=== PATIENT | male | born 1995 | race Caucasian/White ===

== ENCOUNTER 2017-02-03 15:59 | Emergency (ER) | payer OTHER ==
--- NOTE | 2017-02-03 16:25 | EDM.PDOC ---
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 Past medical history: As per history of present illness and as reviewed below otherwise noncontributory. Surgical history: As per history of present illness and as reviewed below otherwise noncontributory. Social history: No reported history of drug or alcohol abuse. Family history: As per history of present illness and as reviewed below otherwise noncontributory. Physical exam: HEENT: Atraumatic, normocephalic, pupils reactive, negative for conjunctival pallor or scleral icterus, mucous membranes moist, throat clear, neck supple, nontender, trachea midline. Lungs: Clear to auscultation, breath sounds equal bilaterally, chest nontender. Heart: S1S2, regular, negative for clicks, rubs, or JVD. Abdomen: Soft, nondistended, nontender. Negative for masses or hepatosplenomegaly. Negative for costovertebral tenderness. Pelvis: Stable nontender. Genitourinary: Deferred. Rectal: Deferred. Extremities: Atraumatic, negative for cords or calf pain. Neurovascular unremarkable. Neuro: Awake, alert, oriented. Cranial nerves II through XII unremarkable. Cerebellum unremarkable. Motor and sensory unremarkable throughout. Exam nonfocal. Diagnostics: [] CT without Cervical spine without Plain films thoracic 3 view Therapeutics: rest ice ibuprofen Impression: [] Concussion Paraspinous muscle spasm is, cervical Definitive disposition and diagnosis as appropriate pending reevaluation and review of above. head and back Pain Score (Numeric/FACES): 5 - Related Data Allergies Allergy/AdvReac Type Severity Reaction Status Date / Time No Known Allergies Allergy Verified 02/03/17 16:13 Home Meds: Home Meds . [No Known Home Meds] 07/06/14 [History] Past Medical History - Past Health History Medical/Surgical History: Denies Medical/Surgical History Social & Family History - Family History Family Medical History: Noncontributory - Tobacco Use Smoking Status *Q: Never Smoker Second Hand Smoke Exposure: No - Caffeine Use Caffeine Use: Reports: None - Alcohol Use Days Per Week of Alcohol Use: 0 - Recreational Drug Use Recreational Drug Use: No ED ROS GENERAL - Review of Systems Review Of Systems: ROS reveals no pertinent complaints other than HPI. ED EXAM, HEAD INJURY - Physical Exam Exam: See Below Course - Vital Signs Last Recorded V/S: Last Vital Signs Temp 37.4 C 02/03/17 16:10 Pulse 92 02/03/17 16:10 Resp 18 02/03/17 16:10 BP 130/80 02/03/17 16:10 Pulse Ox 99 02/03/17 16:10 - Orders/Labs/Meds Orders: Active Orders 24 hr Category Date Time Status Cervical Spine wo Cont [CT] Stat Exams 02/03/17 16:27 Taken Head wo Cont [CT] Stat Exams 02/03/17 16:25 Taken Thoracic Spine 3V [CR] Stat Exams 02/03/17 17:13 Taken Departure - Departure Time of Disposition: 17:56 Disposition: Home, Self-Care 01 Condition: good Clinical Impression: Concussion injury of brain, Contusion, Low back pain - Discharge Information Forms: ED Department Discharge Additional Instructions: Rest Ice 20 minute intervals 3 times daily 7-10 days Ibuprofen 400 mg 3 times daily 7-10 days Followup with primary care or occupational health in 2 weeks Return if symptoms persist or worsen or new concerning symptoms develop The following information is given to patients seen in the emergency department who are being discharged to home. This information is to outline your options for follow-up care. We provide all patients seen in our emergency department with a follow-up referral. The need for follow-up, as well as the timing and circumstances, are variable depending upon the specifics of your emergency department visit. If you don't have a primary care physician on staff, we will provide you with a referral. We always advise you to contact your personal physician following an emergency department visit to inform them of the circumstance of the visit and for follow-up with them and/or the need for any referrals to a consulting specialist. The emergency department will also refer you to a specialist when appropriate. This referral assures that you have the opportunity for follow-up care with a specialist. All of these measure are taken in an effort to provide you with optimal care, which includes your follow-up. Under all circumstances we always encourage you to contact your private physician who remains a resource for coordinating your care. When calling for follow-up care, please make the office aware that this follow-up is from your recent emergency room visit. If for any reason you are refused follow-up, please contact the [facility] emergency department at and asked to speak to the emergency department charge nurse. - My Orders Last 24 Hours: My Active Orders 02/03/17 16:25 Head wo Cont [CT] Stat 02/03/17 16:27 Cervical Spine wo Cont [CT] Stat 02/03/17 17:13 Thoracic Spine 3V [CR] Stat - Assessment/Plan Last 24 Hours: My Active Orders 02/03/17 16:25 Head wo Cont [CT] Stat 02/03/17 16:27 Cervical Spine wo Cont [CT] Stat 02/03/17 17:13 Thoracic Spine 3V [CR] Stat
[2017-02-03 18:10] VITALS: BP 101/60
--- NOTE | 2017-02-04 13:59 | CT ---
EXAM DATE: 02/03/17 PATIENT'S AGE: 21 Patient: BENOIT NAVA Facility: [place], [place] Site . Site : 1995 Study: CT Head [id number]/24/2017 4:59:13 PM Ordering Physician: Steven Montesinos Final Report: INDICATION: injury to head/neck from object hitting back of head CT HEAD WITHOUT CONTRAST TECHNIQUE: Multiple axial CT images were performed through the head without intravenous contrast administration. COMPARISON: No previous studies are currently available for comparison. FINDINGS: No acute intracranial hemorrhage is identified. No extra-axial collections are evident and there is no mass effect or midline shift. Ventricles are normal in size and configuration. Brain parenchyma appears normal with unremarkable goff-white differentiation. Osseous structures are within normal limits and no fractures are seen. Included portions of the paranasal sinuses and mastoid air cells are normally aerated. IMPRESSION: Normal non-contrast head CT. DUY CASTELLANOS MD [employer] Dictated by: Mandeep Castellanos MD @ 02/03/2017 17:07:49 (Electronic Signature) Report Signed by Proxy. [facility]
--- NOTE | 2017-02-04 14:02 | CT ---
EXAM DATE: 02/03/17 PATIENT'S AGE: 21 Patient: BENOIT NAVA Facility: [place], [place] Site . Site : 1995 Study: CT Spine Cervical [id number]/24/2017 5:00:01 PM Ordering Physician: Steven Montesinos Final Report: INDICATION: injury to posterior head no LOC CT CERVICAL SPINE WITHOUT CONTRAST TECHNIQUE: Multidetector axial CT imaging was performed through the cervical spine, without contrast. Sagittal and coronal reconstructions were generated. FINDINGS: No acute fractures are identified. Osseous alignment is unremarkable and no subluxation is seen. Prevertebral soft tissues appear normal. Included portions of the airway and lung apices are within normal limits. IMPRESSION: No fracture, subluxation, or other acute finding identified. DUY FRANCISCO MD [facility] [employer] Dictated by: Mandeep Francisco MD @ 02/03/2017 17:08:06 (Electronic Signature) Report Signed by Proxy. [facility]
--- NOTE | 2017-02-04 14:03 | CR ---
EXAM DATE: 02/03/17 PATIENT'S AGE: 21 Patient: BENOIT NAVA Facility: [place], [place] Site . Site : 1995 Study: XRay Spine Thoracic [id number]/24/2017 5:45:55 PM Ordering Physician: Steven Montesinos Final Report: INDICATION: injury caused by being hit in back with container at work, pain between scapulas THORACIC SPINE FINDINGS: No acute fractures are identified. No destructive lesions of bone are demonstrated. Osseous alignment is within normal limits and no subluxation is seen. Paravertebral soft tissues are unremarkable. IMPRESSION: Normal. DUY FRANCISCO MD [facility] [employer] Dictated by: Mandeep Francisco MD @ 02/03/2017 17:53:43 (Electronic Signature) Report Signed by Proxy. [facility]
== END 2017-02-03 18:10 | disposition home or self-care (01) ==
LOC: MW.ED 15:59
DX: S06.0X0A Concussion without loss of consciousness, initial encounter (principal); S20.229A Contusion of unspecified back wall of thorax, initial encounter; W20.8XXA Other cause of strike by thrown, projected or falling object, initial encounter; Y99.0 Civilian activity done for income or pay
CPT/HCPCS: 70450; 70450-26; 72072; 72072-26; 72125; 72125-26; 99284; 99284-25